=== PATIENT | male | born 1950 | race Caucasian/White ===

== ENCOUNTER → 2017-02-28 | Outpatient (CLI) | payer MEDICARE | LOC: NM 07:51 | DX: C61 Malignant neoplasm of prostate (principal); R93.7 Abnormal findings on diagnostic imaging of other parts of musculoskeletal system | CPT/HCPCS: 78306; A9503 ==

== ENCOUNTER → 2021-01-12 | Outpatient (CLI) | payer MEDICARE ==
[~2021-01-12] MED LIST: DOXYCYCLINE HY100 M2 PO; ROBITUSSIN AC480 ML PO
== END ==
LOC: KOH-I 11:08
DX: J44.1 Chronic obstructive pulmonary disease with (acute) exacerbation (principal)
CPT/HCPCS: 71046

== ENCOUNTER → 2021-02-08 | Outpatient (CLI) | payer MEDICARE | LOC: HEART 5 09:09 | DX: R05 Cough (principal) | CPT/HCPCS: 94010 ==

== ENCOUNTER → 2021-05-02 | Outpatient (CLI) | payer MEDICARE, OTHER | LOC: RAD 12:59 | DX: R05 Cough (principal) | CPT/HCPCS: 71046 ==

== ENCOUNTER 2021-05-22 15:39 | Emergency (ER) | payer MEDICARE, SELFPAY ==
[2021-05-22 17:20] LABS: HEMOGLOBIN 16.1 gm/dl (14.0-17.5); RED BLOOD COUNT 5.26 M/UL (4.20-5.50); WHITE BLOOD COUNT 6.7 K/UL (4.5-11.0)
[2021-05-22 17:37] LABS: BUN/CREATININE RATIO 11 (0-10)
== END 2021-05-22 17:16 | disposition home or self-care (01) ==
LOC: ER1 15:39
PROVIDERS: Physician Assistant Medical
DX: U07.1 COVID-19 (principal); I11.9 Hypertensive heart disease without heart failure; E11.9 Type 2 diabetes mellitus without complications; J44.9 Chronic obstructive pulmonary disease, unspecified
CPT/HCPCS: 0240U; 71045; 80053; 83605; 85025; 87040; 99283

== ENCOUNTER → 2021-08-24 | Outpatient (CLI) | payer MEDICARE ==
[~2021-08-24] MED LIST changes: +ASPIRIN CHEWABL81 MG PO; +EFFEXOR XR150 MG PO; +ELIQUIS 5 MG TAB5 MG PO; +GLUCOPHAGE 500500 MG PO; +INTUNIV1 MG PO; +ISOSORBIDE MONO30 MG PO; +LIPITOR40 MG PO; +LOPRESSOR 25 MG25 MG PO; +MAG-OX 400 TAB400 MG PO; +MELATONIN3 MG PO; +MULTAQ 400 MG400 MG PO; +PROAIR DIGIHAL90 MCG INH; +PROTONIX40 MG PO; +RAZADYNE ER16 MG PO; +SYMBICORT 160-1 INHA INH; +TERAZOSIN HCL2 MG PO; +TUMS DUAL ACTI1 EACH PO; +ZYRTEC10 MG PO
[2021-08-24 07:49] LABS: HEMOGLOBIN 15.3 gm/dl (14.0-17.5); RED BLOOD COUNT 5.2 M/UL (4.20-5.50); WHITE BLOOD COUNT 8.3 K/UL (4.5-11.0)
[2021-08-24 08:19] LABS: BUN/CREATININE RATIO 22 (0-10)
== END ==
LOC: CATH 07:02
PROVIDERS: Internal Medicine Cardiovascular Disease
DX: I48.0 Paroxysmal atrial fibrillation (principal); I49.5 Sick sinus syndrome; I25.10 Atherosclerotic heart disease of native coronary artery without angina pectoris; E78.5 Hyperlipidemia, unspecified; F03.90 Unspecified dementia, unspecified severity, without behavioral disturbance, psychotic disturbance, mood disturbance, and anxiety; I10 Essential (primary) hypertension; E11.9 Type 2 diabetes mellitus without complications; Z95.0 Presence of cardiac pacemaker; Z86.73 Personal history of transient ischemic attack (TIA), and cerebral infarction without residual deficits; Z79.01 Long term (current) use of anticoagulants; Z79.82 Long term (current) use of aspirin; Z79.84 Long term (current) use of oral hypoglycemic drugs; Z79.899 Other long term (current) drug therapy; Z20.822 Contact with and (suspected) exposure to COVID-19
CPT/HCPCS: 36415; 80048; 85027; 93005; J1200; J1742; J2250; J2310; J3010; U0002

== ENCOUNTER → 2022-05-13 | Outpatient (CLI) | payer MEDICARE ==
[~2022-05-13] MED LIST changes: +CLEOCIN HCL300 MG PO; +CYANOCOBAL1000 MCG/1 INJ; +HYDROCODON-ACE1 EAC4 PO; +LEVOFLOXACIN500 MG PO; +VITAMIN D-40010 MCG PO
[2022-05-13 16:07] LABS: HEMOGLOBIN 14.2 gm/dl (14.0-17.5); RED BLOOD COUNT 4.86 M/UL (4.20-5.50); WHITE BLOOD COUNT 8.9 K/UL (4.5-11.0)
== END ==
LOC: LAB 15:26
PROVIDERS: Internal Medicine Cardiovascular Disease
DX: Z45.010 Encounter for checking and testing of cardiac pacemaker pulse generator [battery] (principal); I48.91 Unspecified atrial fibrillation; I49.5 Sick sinus syndrome
CPT/HCPCS: 71045; 80048; 85025